=== PATIENT | male | born 1990 | race Hispanic/Latino ===

== ENCOUNTER 2016-08-21 01:12 | Emergency (ER) | payer BC, SELFPAY ==
[2016-08-21] MEDS ORDERED: ALPRAZolam 0.5 MG TAB ONE (01:27)
--- NOTE | 2016-08-21 08:20 | RAD ---
EXAM: CHEST 2 VIEWS: HISTORY: Dyspnea. Shortness of breath. COMPARISON: None. FINDINGS: Normal cardiac silhouette. Pulmonary vessels and hilum are normal. No mass. No consolidation. No pneumothorax or osseous abnormalities. IMPRESSION: No acute cardiopulmonary process. POS: [facility]
== END 2016-08-21 02:10 | disposition home or self-care (01) ==
LOC: BURERS 01:12
DX: F41.0 Panic disorder [episodic paroxysmal anxiety] (principal); F31.9 Bipolar disorder, unspecified; Z79.899 Other long term (current) drug therapy
CPT/HCPCS: 71020

== ENCOUNTER 2016-10-31 22:34 | Emergency (ER) | payer BC ==
[2016-10-31] MEDS ORDERED: Ondansetron HCl/PF 4 MG/2 ML Vial ONE (23:33)
[2016-10-31] MEDS ORDERED: Ketorolac Tromethamine 30 MG/ML VIAL ONE (23:33)
[2016-10-31 23:35] LABS: #Basophils 0.2 thou/uL (0.0-0.2); #Eosinphils 0.2 thou/uL (0.0-0.7); #Lymphocytes 3.1 thou/uL (1.20-3.40); #Monocytes 0.8 thou/uL (0.11-0.59); #Neutrophils 6.5 thou/uL (1.40-6.50); %Basophils 1.7 % (0.0-1.0); %Eosinophils 2.1 % (0.0-10.0); %Lymphocytes 28.4 % (21.0-51.0); %Monocytes 7.4 % (0.0-10.0); %Neutrophils 60.4 % (42.0-75.0); Hemoglobin 15.8 g/dL (14.0-18.0); Mean Corpuscular HGB CONC 33.5 g/dL (32.0-36.0); Mean Corpuscular Hemoglobin 28.9 pg (27.0-31.0); Mean Corpuscular Volume 86.3 fl (80.0-94.0); Mean Platelet Volume 7.5 fL (7.4-10.4); Platelet Count 360 thou/uL (130-400); RBC Distribution Width 12.5 % (11.5-14.5); Red Blood Cell (RBC) Count 5.48 mill/uL (4.70-6.10); White Blood Cell (WBC) Count 10.8 thou/uL (4.8-10.8)
[2016-10-31 23:37] LABS: Blood, Urine Negative (Negative); Clarity Clear (Clear); Glucose, Urine (Dipstick) Negative (Negative); Leukocyte Negative (Negative); Nitrite Negative (Negative); Protein, Urine (Dipstick) Trace mg/dL (Neg-Trace); pH, Urine 5.5 (5.0-9.0)
[2016-10-31 23:39] LABS: Bilirubin Negative (Negative)
[2016-10-31 23:40] LABS: Specific Gravity, Urine 1.031 (1.002-1.036)
[2016-10-31 23:56] LABS: ALT (SGPT) 41 U/L (8-55); AST (SGOT) 26 U/L (5-34); Albumin 4.6 g/dL (3.5-5.0); Alkaline Phosphatase 107 U/L (40-150); Anion Gap 16 mmol/L (10-20); BUN (Urea Nitrogen) 12 mg/dL (8.9-20.6); Bilirubin, Total 0.8 mg/dL (0.2-1.2); Calc. Creatinine Clearance 0 mL/min (70-130); Calcium 9.4 mg/dL (7.8-10.44); Carbon Dioxide 23 mmol/L (22-29); Chloride 106 mmol/L (98-107); Estimated GFR-MDRD Greater than 90; Globulin 3.8 g/dL (2.4-3.5); Glucose 91 mg/dL (70-105); Lipase 23 U/L (8-78); Potassium 3.7 mmol/L (3.5-5.1); Protein, Total 8.4 g/dL (6.0-8.3); Sodium 141 mmol/L (136-145)
[2016-11-01] MEDS ORDERED: Prochlorperazine 10 MG/2 ML VIAL ONE (00:07)
[2016-11-01] MEDS ORDERED: Pantoprazole 40 MG VIAL ONE (00:07)
[2016-11-01] MEDS ORDERED: Ondansetron HCl/PF 4 MG/2 ML Vial ONE (01:06)
[2016-11-01] MEDS ORDERED: ALPRAZolam 0.5 MG TAB ONE (01:06)
== END 2016-11-01 01:55 | disposition home or self-care (01) ==
LOC: BURERS 22:34
DX: E87.6 Hypokalemia (principal); E86.0 Dehydration; K52.9 Noninfective gastroenteritis and colitis, unspecified; F31.9 Bipolar disorder, unspecified; F41.9 Anxiety disorder, unspecified; Z79.899 Other long term (current) drug therapy
CPT/HCPCS: 80053; 81003; 83690; 85025; 96361; 96374; 96375; 96376; C9113; J0780; J1885; J2405

== ENCOUNTER 2016-11-21 00:45 | Emergency (ER) | payer BC ==
[2016-11-21] MEDS ORDERED: Ondansetron HCl/PF 4 MG/2 ML Vial ONE (01:20)
[2016-11-21 01:35] LABS: #Basophils 0.2 thou/uL (0.0-0.2); #Eosinphils 0.1 thou/uL (0.0-0.7); #Lymphocytes 2.9 thou/uL (1.20-3.40); #Monocytes 0.8 thou/uL (0.11-0.59); #Neutrophils 6.1 thou/uL (1.40-6.50); %Basophils 1.9 % (0.0-1.0); %Eosinophils 1.2 % (0.0-10.0); %Lymphocytes 28.4 % (21.0-51.0); %Monocytes 8.3 % (0.0-10.0); %Neutrophils 60.3 % (42.0-75.0); Mean Corpuscular HGB CONC 33.1 g/dL (32.0-36.0); Mean Corpuscular Hemoglobin 29.5 pg (27.0-31.0); Mean Corpuscular Volume 89.1 fl (80.0-94.0); Mean Platelet Volume 7.3 fL (7.4-10.4); Platelet Count 358 thou/uL (130-400); RBC Distribution Width 12.2 % (11.5-14.5); Red Blood Cell (RBC) Count 5.43 mill/uL (4.70-6.10); White Blood Cell (WBC) Count 10.1 thou/uL (4.8-10.8)
[2016-11-21 01:44] LABS: ALT (SGPT) 33 U/L (8-55); AST (SGOT) 22 U/L (5-34); Albumin 4.6 g/dL (3.5-5.0); Alkaline Phosphatase 112 U/L (40-150); Anion Gap 12 mmol/L (10-20); BUN (Urea Nitrogen) 14 mg/dL (8.9-20.6); Bilirubin, Total 0.8 mg/dL (0.2-1.2); Calc. Creatinine Clearance 0 mL/min (70-130); Calcium 9.8 mg/dL (7.8-10.44); Carbon Dioxide 25 mmol/L (22-29); Chloride 106 mmol/L (98-107); Estimated GFR-MDRD Greater than 90; Globulin 3.7 g/dL (2.4-3.5); Glucose 103 mg/dL (70-105); Potassium 3.8 mmol/L (3.5-5.1); Protein, Total 8.3 g/dL (6.0-8.3); Sodium 139 mmol/L (136-145)
[2016-11-21] MEDS ORDERED: Prochlorperazine 10 MG/2 ML VIAL ONE (02:13)
[2016-11-21] MEDS ORDERED: ALPRAZolam 0.5 MG TAB ONE (03:17)
--- NOTE | 2016-11-21 11:18 | CT ---
PRELIMINARY REPORT/[facility]/EMERGENCY AFTER HOURS PROCEDURE: EXAM: CT Abdomen and Pelvis Without Intravenous Contrast EXAM DATE/TIME: Exam ordered 11/21/2016 3:01 AM CLINICAL HISTORY: 26 years old, male; Signs and symptoms; Vomiting; Patient HX: Pt presents to the er for vomiting jeremiah ne; Sudden onset of symptoms, 6, hours prior to arrival. TECHNIQUE: Axial computed tomography images of the abdomen and pelvis without intravenous contrast. All CT scan s at this facility use one or more dose reduction techniques, viz.: automated exposure control; ma/k V adjustment per patient size (including targeted exams where dose is matched to indication; i.e. he ad); or iterative reconstruction technique. Coronal reformatted images were created and reviewed. COMPARISON: No relevant prior studies available. FINDINGS: Lower thorax: No acute findings. ABDOMEN: Liver: Unremarkable. Gallbladder and bile ducts: Unremarkable. No calcified stones. No ductal dilation. Pancreas: Unremarkable. No ductal dilation. Spleen: Unremarkable. No splenomegaly. Adrenals: Unremarkable. No mass. Kidneys and ureters: Unremarkable. No obstructing stones. No hydronephrosis. Stomach and bowel: Unremarkable. No obstruction. No mucosal thickening. Appendix: Normal appendix. PELVIS: Bladder: Unremarkable. No stones. Reproductive: Unremarkable as visualized. ABDOMEN and PELVIS: Intraperitoneal space: Unremarkable. No free air. No significant fluid collection. Bones/joints: No acute fracture. No dislocation. Soft tissues: Unremarkable. Vasculature: Unremarkable. No abdominal aortic aneurysm. Lymph nodes: Unremarkable. No enlarged lymph nodes. IMPRESSION: No acute findings. Thank you for allowing us to participate in the care of your patient. Dictated and Authenticated by: Flako Mccain MD 11/21/2016 3:27 AM Central Time ([place] \T\ [place]) FINAL REPORT CT ABDOMEN AND PELVIS WITHOUT CONTRAST: 11/21/2016 TECHNIQUE: A spiral CT of the abdomen and pelvis was done to evaluate vomiting. Axial slices were acquired and then coronal reconstructions were done. No oral or IV contrast was used. FINDINGS: The lung bases are clear. The liver, spleen, pancreas, gallbladder, adrenal glands, kidneys, and ab dominal aorta all appear normal, within the limitations of the noncontrast study. The bowel shows no sign of obstruction, bowel wall thickening, or inflammatory change around it. Th ere is no mesenteric adenopathy. The appendix appears normal. No free air or free fluid is seen. CT of the pelvis shows no pelvic masses, fluid collections, or inflammatory changes. IMPRESSION: No significant abdominal or pelvic findings to explain the patient's symptoms. Report in agreement with preliminary reading by Zaria. POS: HOME
== END 2016-11-21 03:43 | disposition home or self-care (01) ==
LOC: BURERS 00:45
DX: K52.9 Noninfective gastroenteritis and colitis, unspecified (principal); F31.9 Bipolar disorder, unspecified; F41.9 Anxiety disorder, unspecified; Z79.899 Other long term (current) drug therapy
CPT/HCPCS: 74176; 80053; 85025; 96361; 96374; 96375; J0780; J2405

== ENCOUNTER 2016-11-25 22:18 | Emergency (ER) | payer BC ==
[2016-11-25] MEDS ORDERED: Lorazepam 2 MG/ML VIAL ONE (22:39)
== END 2016-11-25 23:30 | disposition home or self-care (01) ==
LOC: BURERS 22:18
DX: F41.9 Anxiety disorder, unspecified (principal); F25.0 Schizoaffective disorder, bipolar type; Z79.899 Other long term (current) drug therapy
CPT/HCPCS: 96372; J2060